=== PATIENT | female | born 1970 | race Caucasian/White ===

== ENCOUNTER 2021-07-28 06:13 | Day surgery (SDC) | payer OTHER ==
[~2021-07-28] VITALS: Ht 167.6 cm; Wt 59.0 kg
[2021-07-28] MEDS ORDERED: fentaNYL citrate 0.05 MG/ML VIAL ONE (07:40)
[2021-07-28] MEDS ORDERED: LIDOCAINE 2% 100 MG/5 ML UJET TP ONE (07:41)
[2021-07-28] MEDS ORDERED: MIDAZOLAM 5 MG/5 ML VIAL ONE (07:41)
[2021-07-28] MEDS ORDERED: diphenhydrAMINE 50 MG/ML VIAL ONE (08:24)
[2021-07-28] MEDS ORDERED: MIDAZOLAM 2 MG/2 ML VIAL IV ONE (12:45)
== END 2021-07-28 09:50 | disposition home or self-care (01) ==
LOC: MDS 06:13 → MMU 06:15 → MDS 09:50
PROVIDERS: ATTEND Internal Medicine Gastroenterology
DX: Z12.11 Encounter for screening for malignant neoplasm of colon (principal); Z98.82 Breast implant status; Z79.899 Other long term (current) drug therapy
CPT/HCPCS: 45378; 81025; J2250; J3010; J1200